=== PATIENT | female | born 1955 ===

== ENCOUNTER 2023-04-09 05:05 | Observation (INO) ==
--- NOTE | 2023-03-28 15:33 | Anesthesiology Consultation ---
Date of Service March 28, 2023 Assessment & Plan (1) Encounter for pre-operative examination: - check BSG am DOS. - awaiting medical clearance with Dr. Tate Moise, regular appointment 03/29/23. Optimization form and PAT testing to be faxed to PCP office. - Case discussed in detail with Dr. Cullen who advised patient have medical clearance given low functional capacity. Surgeon's office notified. Ramandeep made aware, states she will call family member taking patient to appointment today that it will need to also be a pre-op evaluation. - Cook Islander translation needed. Patient's son Milan will be present DOS for translation. He offered remaining overnight if staff need/prefer he do so for translation. Awaiting response from RN housing supervisors. - Medication instruction list discussed with patient translated by her son. They verbalized understanding and agreement, denied questions or concerns. - Trulicity instructions: Patient takes on (Saturday). Patient informed at PAT visit to stop 7 days prior to surgery and to contact prescribing provider regarding this and plan for resumption-voiced understanding. Instructed last dose will be: (03/29/23). Patient advised to check with prescriber to see if alternative diabetic management changes recommended while holding Trulicity-if so, patient to call back to PAT to update chart and discuss if any further preop medication instructions needed. - Outpatient joint assessment: Patient is currently scheduled for inpatient pathway. Patient and son express preference patient remain overnight. Chart Review Chart Review: Pending: Refer to Additional Notes / Consult section and Patient seen in Pre Admission Testing Teaching & Discussion Pre-Anesthesia Teaching/Discussion Notes: Instructed NPO after midnight before surgery, except medications with 15 cc of water. Medication instructions provided according to the PAT guidelines. History Surgery Operation Date: 04/09/23 10:40 Proposed Procedures p Right Total Hip Arthroplasty - Jose M Holliday MD Patient's son Milan translates for patient throughout entire visit. No weight at PAT visit as patient is unable to stand, weight in chart was reported by patient and son. Height/Weight Height: 5 ft 5 in Weight: 91.172 kg Allergies Allergy/AdvReac Type Severity Reaction Status Date / Time No Known Allergies Allergy Verified 03/14/23 15:34 Medications Home Medications Medication Instructions Recorded Confirmed Last Taken apremilast 30 mg tablet (Otezla) 30 mg PO BID 03/15/23 03/28/23 Unknown atorvastatin 10 mg tablet 10 mg PO QAM 03/15/23 03/28/23 Unknown celecoxib 200 mg capsule 200 mg PO DAILY PRN Pain 03/15/23 03/28/23 Unknown dulaglutide 1.5 mg/0.5 mL 0 - 1.5 mg subcut WK 03/15/23 03/28/23 Unknown subcutaneous pen injector (Trulicity) amlodipine 10 mg-benazepril 20 mg 1 cap PO QAM 03/28/23 03/28/23 Unknown capsule ergocalciferol (vitamin D2) 1,250 1,250 mcg PO WK 03/28/23 03/28/23 Unknown mcg (50,000 unit) capsule (Vitamin D2) Past Medical History Medical History (Updated 03/28/23 @ 16:06 by Elsa Roman PA-C) Reid's palsy 2018 Hyperlipidemia Hypertension controlled, stable per pt Diabetes NIDDM Patient denies h/o stroke, seizures, heart attack, heart failure, blood clots/DVTs or blood transfusions. Exercise / Class Metabolic Activity III < 4 Walking/Shop/Light housework (ambulates with walker at home, usually sedentary; denies chest discomfort or shortness of breath doing usual activities with walker) Past Surgical History Surgical History (Updated 03/28/23 @ 16:08 by Elsa Roman PA-C) History of ankle surgery right Past Anesthesia History No Hx of Anesthesia Complications and No Family Hx of Anesthesia Complications History of PONV No Hx of PONV and No Hx of Motion Sickness Social History Smoking Status: Never smoker Do You Dip or Chew Tobacco: No Hx Alcohol Use: No Hx Substance Use: No Review of Systems Snoring, denies witnessed apneas. Patient denies chest pain, shortness of breath, dyspnea on exertion, reflux, fever, chills, cough, wheezing, or palpitations. Physical Exam Vital Signs Vitals BP 131/74 P 79 TEMP 98.9 SP02 96% on RA RESP 17 Physical Patient resting comfortably in chair in no acute distress, alert and oriented, responding appropriately throughout visit Full cervical extension range of motion without pain TMD 3.5 finger breadths Mallampati Score 2 Dentition: edentulous, full upper and lower dentures Lungs: normal respiratory effort. Good air movement, clear throughout to auscultation, no adventitious breath sounds Cardiac: regular rate and rhythm, no murmurs noted Carotid arteries: negative bruit bilat Lab Results Anesthesia Preop Results Results Anesthesia Widget: WBC 10.36 K/ul (4.8-10.8) 03/14/23 Hgb 12.1 g/dl (12.0-16.0) 03/14/23 Hct 37.8 % (37.0-47.0) 03/14/23 Plt 336 K/uL (130-400) 03/14/23 Na 141 mmol/L (136-145) 03/28/23 K 4.0 mmol/L (3.5-5.1) 03/28/23 Cl 104 mmol/L (98-107) 03/28/23 CO2 31 mmol/L (21-32) 03/28/23 BUN 16 mg/dl (6-23) 03/28/23 Creat 0.64 mg/dl (0.6-1.2) 03/28/23 Glucose Level 128 mg/dl (70-99(Fasting)) H 03/28/23 PT 10.2 Seconds (9.0-12.0) 03/28/23 PTT 26.8 Seconds (21.0-31.0) 03/28/23 INR 0.9 (0.9-1.1) 03/28/23 HA1c 6.6 % (4.5-5.6) H 03/28/23 Blood Type A Positive 03/28/23 Antibody Screen NEGATIVE 03/28/23 Testing Electrocardiogram Date: 03/28/23 NSR, rate 77 bpm Incomplete RBBB Chest X-Ray Date: 03/28/23 No acute process.
--- NOTE | 2023-03-28 16:08 | PAT Medication Instructions ---
Medication Instructions Date of Service March 28, 2023 Home Medications apremilast 30 mg tablet (Otezla) 30 mg PO BID atorvastatin 10 mg tablet 10 mg PO QAM celecoxib 200 mg capsule 200 mg PO DAILY PRN Pain dulaglutide 1.5 mg/0.5 mL subcutaneous pen injector (Trulicity) mg subcut WK amlodipine-benazepril 10 - 20 mg PO QAM ergocalciferol (vitamin D2) 1,250 mcg (50,000 unit) capsule (Vitamin D2) 1,250 mcg PO WK ASK your surgeon for instructions celecoxib 200 mg capsule 200 mg PO DAILY PRN Pain ASK your prescriber and surgeon apremilast 30 mg tablet (Otezla) 30 mg PO BID DO NOT take the morning of surgery amlodipine-benazepril 10 - 20 mg PO QAM ergocalciferol (vitamin D2) 1,250 mcg (50,000 unit) capsule (Vitamin D2) 1,250 mcg PO WK Take morning of surgery With a small sip of water, OTHERWISE NOTHING TO EAT OR DRINK AFTER MIDNIGHT: atorvastatin 10 mg tablet 10 mg PO QAM STOP 7 days before surgery (last dose 03/29/23) dulaglutide 1.5 mg/0.5 mL subcutaneous pen injector (Trulicity) mg subcut WK Other Notes If you have any questions please call us at [phone] or [phone] or [phone] or [phone]
[2023-04-09] MEDS ORDERED: METOCLOPRAMIDE HCL 10 MG TABLET PO SCH (06:00)
[2023-04-09] MEDS ORDERED: LR 60ML/HR IV SCH (06:00)
[2023-04-09] MEDS ORDERED: LR 500ML BOLUS, THEN 15ML/HR IV SCH (06:00)
[2023-04-09] MEDS ORDERED: CeleBREX 200 MG CAP PO SCH (06:00)
[2023-04-09] MEDS ORDERED: ceFAZolin 2000MG 2,000 MG/15 ML SYR IV SCH (06:00)
[2023-04-09] MEDS ORDERED: ACETAMINOPHEN 500 MG TAB PO SCH (06:00)
[2023-04-09] MEDS ORDERED: Scopolamine 1 MG TDSY TD SCH (06:00)
[2023-04-09] MEDS ORDERED: FAMOTIDINE 20 MG TAB PO SCH (06:00)
[2023-04-09] MEDS ORDERED: TRANEXAMIC ACID 1,000 MG **IV Pre-op IV SCH (06:00)
[2023-04-09] MEDS ORDERED: MIDAZOLAM HCL 1 MG/ML 2ML VIAL ONE (06:27)
[2023-04-09] MEDS ORDERED: BUPIVACAINE 0.5 % 5 MG/1 ML PF 10ML VIAL ONE (06:27)
[2023-04-09] MEDS ORDERED: ONDANSETRON INJ 2 MG/ML 2 ML VIAL ONE (06:28)
[2023-04-09] MEDS ORDERED: LIDOCAINE 2% 2 ML VIAL/AMP(20MG/ML) INFIL ONE (06:28)
[2023-04-09] MEDS ORDERED: KETOROLAC 30 MG/ML VIAL ONE (06:28)
[2023-04-09] MEDS ORDERED: PROPOFOL IV EMULSION 10 MG/ML 100 ML VIAL IV ONE (06:28)
[2023-04-09] MEDS ORDERED: ROCURONIUM BROMIDE 10 MG/ML 5 ML VIAL IV ONE (06:32)
[2023-04-09] MEDS ORDERED: PROPOFOL IV EMULSION 10 MG/ML 20 ML VIAL IV ONE (06:32)
[2023-04-09] MEDS ORDERED: fentaNYL citrate PF 100 MCG/2 ML VIAL IV PRN (06:33)
[2023-04-09] MEDS ORDERED: ATROPINE SULFATE 0.1 MG/ML 10ML SYR IV PRN (06:33)
[2023-04-09] MEDS ORDERED: ePHEDrine sulfate 50 MG/ML AMP IV PRN (06:33)
[2023-04-09] MEDS ORDERED: ONDANSETRON INJ 2 MG/ML 2 ML VIAL IV PRN ×2 (06:33→11:04)
[2023-04-09] MEDS ORDERED: BUPIVACAINE/EPINEPHRINE 0.5% MPF 1:200,000 30 ML VIAL ONE (06:36)
--- NOTE | 2023-04-09 06:52 | History & Physical Bridge Note ---
Date of Service April 09, 2023 History & Physical Bridge Note I have examined the patient, reviewed the History & Physical and in the interval since the performance of the History & Physical I have noted the following changes of clinical significance: no changes noted
[2023-04-09] MEDS ORDERED: VANCOMYCIN HCL 1000MG/20ML VIAL ONE (06:55)
[2023-04-09] MEDS ORDERED: fentaNYL citrate PF 100 MCG/2 ML VIAL ONE (07:07)
[2023-04-09] MEDS ORDERED: SUGAMMADEX SODIUM 200 MG/2 ML VIAL IV ONE (07:35)
[2023-04-09] MEDS ORDERED: HYDROmorphone INJ 2 MG/ML SYR/VIAL ONE (07:37)
[2023-04-09] MEDS ORDERED: ePHEDrine sulfate 50 MG/5 ML SYR ONE (07:56)
--- NOTE | 2023-04-09 09:04 | Operative Report ---
PG Post Operative Report Pre & Post Diagnosis Operation Date: 04/09/23 07:00 Pre-Op Diagnosis: Right Hip Advanced Degenerative Joint Disease Post-Op Diagnosis: Right Hip Advanced Degenerative Joint Disease I identified the patient and participated in the time-out.: Yes Procedure Operation Date: 04/09/23 07:00 Actual Procedures p Right Total Hip Arthroplasty--Cemented(Right) - Jose M Holliday MD Surgeon Jose M Holliday MD Honing Machine Operator Semiautomatic Yannick Valencia PA-C Estimated Blood Loss 200 Findings Consistent with Post-Op Diagnosis Operative findings were advanced right hip DJD. She had extensive grade 4 [id number] disease of the femoral head and acetabulum. Some destruction of the femoral head. Moderate-sized joint effusion. Specimens Right femoral head sent for pathology. Anesthesia Type General Complications none Disposition Accompanied Patient To Recovery: No Indications Patient is 68-year-old female from the [facility] who has about a year history of increasing right hip pain discomfort is gotten markedly worse to the point where she had to use a walker to get around. X-rays show advanced hip arthritis with destruction of the femoral head. She failed all conservative measures. She had an extensive workup including infectious workup which was all negative. She elected proceed with total hip arthroplasty. Description of Procedure Operative implants consist of: 1. Biomet G7 size 52 mm acetabular shell. 2. Ages [place] chief data officer. 3. 6.5 cancellous acetabular screws 1 of 35 mm length and 125 mm length. 4. Highly cross-linked polyethylene liner with a 52 mm outer diameter, 36 mm inner diam with a newman placed inferior and posterior. 5. DePuy [place] size 3 high offset cemented femoral stem. 6. +5/36 mm ceramic articular ball. 7. Small cement restrictor. 8. 10 mm centralizer. The patient was taken the operating, identified, and placed on the operating table in the supine position but all contractors were appropriately padded. IV antibiotics tried by anesthesia team. A general anesthetic was implemented as the patient refused the spinal left. A Martinez catheter was placed in sterile fashion. The patient then placed in the left lateral decubitus position. An axillary roll was placed. Stulberg hip positioner was used for positioning. The right hip and leg were then prepped and draped in usual sterile fashion. A posterolateral approach to the right hip was then performed to a curvilinear incision centered over the greater trochanter. Sharp dissection was carried through subcutaneous tissue down to level the IT band gluteal fascia with the IT band gluteal fascia were incised longitudinally in line with skin incision. The underlying greater bursa was excised. The piriformis and external rotators along with the posterior hip joint capsule were taken off the posterior aspect of the hip as a single layer. Great care was taken throughout the procedure to protect the sciatic nerve at all times. The hip was internally rotated and dislocated. A femoral neck osteotomy cut was made with Final Cut about 7 mm above the lesser trochanter. Femoral head was removed and sent for pathology. The femur was retracted anteriorly. Attention drawn the acetabulum. The acetabular labrum was excised. The pulmonary fat was excised. Sequential reaming the acetabular was then performed beginning with size 43 and progressing up to a 51. I reamed a little bit with a 52 reamer. A 52 mm Biomet G7 acetabular shell was then placed in about 40 degrees lateral opening and 20 degrees of anteversion. It was fixed with two 6.5 cancellous acetabular screws. Trial liner was placed. Attention drawn the femur. The proximal femur was then with a StyleCaster cutter followed by canal finder and lateralizing reamer. I then began broaching with the 1 broach and progressed up to a 3. We got good fit with a 3. I trialed the hip. With the standard neck of the soft tissue tension just seemed a bit lax. We did elect to use a high offset implant to maximize her soft tissue stability. Leg lengths seemed equal. We will he elected to place these implants. All trial implants were removed. A cement restrictor was placed distally. The trial liner was removed. An apex eliminator was placed. Highly cross-linked polyethylene liner was placed with a newman placed inferior and posterior to maximize stability in flexion. The canal was then irrigated and brushed. Double batch [place] G cement was mixed and injected in the canal. A size 3 [place] high offset cemented femoral stem with a centralizer was placed. Once all cement hardened final check was performed. A +5/36 mm ceramic articular ball was placed. Hip was located. Soft tissue seemed appropriately attention. Leg lengths appeared equal. Hip was fully stable full extension and external rotation flexion to 90 degrees internal Tatian over 50 degrees. Attention drawn toward closing. The wound was irrigated coconuts pulsatile lavage solution. I did inject locally with 60 cc of half percent Marcaine with epinephrine. Posterior capsule and external rotators then repaired through drill holes in the posterior trochanter with #2 Tycron suture. The IT band gluteal fascia were then closed with #1 PDS suture running fashion with subcutaneous tissues then closed with 2 layers with deep layer #2 Vicryl suture in subcutaneous tissues with 2-0 Dexon suture in a buried interrupted fashion the skin was closed skin yoli. Leg was then cleaned and dried. A Prevena VAC dressing was applied due to the fairly thick soft tissue envelope. The patient was then brought out of general esthesia and transferred to the recovery room in stable condition. Patient tolerated procedure well and there were no complications. Yannick Valencia, my physician assistant finance manager, was present for the entire procedure. His assistance was essential and required for appropriate patient positioning, prepping and draping, surgical exposure, performing the technical details of the operation, placement the implants, closure of the wound, and placement of the sterile bandage. I attest to the content of the Intraoperative Record and any orders documented therein. Any exceptions are noted below.
[2023-04-09] MEDS ORDERED: ALUMINUM/MAGNESIUM SUSP 30 ML UDC PO PRN (11:04)
[2023-04-09] MEDS ORDERED: traMADol HCL 50 MG TABLET PO PRN (11:04)
[2023-04-09] MEDS ORDERED: SENNA 8.6 MG TAB PO SCH ×2 (11:04→21:00)
[2023-04-09] MEDS ORDERED: GLUCOSE 40% GEL 15 GM TUBE PO PRN (11:04)
[2023-04-09] MEDS ORDERED: MAGNESIUM HYDROXIDE SUSP 30 ML UDC PO PRN (11:04)
[2023-04-09] MEDS ORDERED: METOCLOPRAMIDE HCL INJ 5 MG/ML 2 ML VIAL IV PRN (11:04)
[2023-04-09] MEDS ORDERED: CARBOHYDRATES FOR HYPOGLYCEMIA PO PRN (11:04)
[2023-04-09] MEDS ORDERED: DEXTROSE 50% 50 ML SYRINGE IV PRN (11:04)
[2023-04-09] MEDS ORDERED: NALOXONE HCL 0.4 MG/1 ML VIAL/CARP IV PRN (11:04)
[2023-04-09] MEDS ORDERED: PHARMACY GLYCEMIC MGMT CONSULT PRN (11:04)
[2023-04-09] MEDS ORDERED: NON-FORMULARY MEDICATION (Dulaglutide [Trulicity] 1.5 mg/0.5 mL pen injector) SQ SCH (11:04)
[2023-04-09] MEDS ORDERED: GLUCAGON FOR INJ 1 MG VIAL SQ PRN (11:04)
[2023-04-09] MEDS ORDERED: HYDROmorphone INJ 0.5 MG/0.5 ML SYR IV PRN (11:04)
[2023-04-09] MEDS ORDERED: bisacodyL 10 MG SUPP PR PRN (11:04)
[2023-04-09] MEDS ORDERED: GLUCOSE 10 TAB/TUBE PO PRN (11:04)
--- NOTE | 2023-04-09 11:37 | Pharmacy Report ---
Pharmacy Glycemic Short Note 2 - Date of Service April 09, 2023 - Glycemic Short BSG Results (Last 24 hours): 04/09/23 04/09/23 06:18 09:11 POC Glucose 101 H 199 H OUTPATIENT ANTIDIABETIC REGIMEN: * dulaglutide 1.5mg SQ weekly HbA1C: 6.6% (03/28) ASSESSMENT: * Pt is a 68 year old female POD #0 right total hip arthroplasty. Pharmacy consulted to assist with inpatient glycemic management. * BSGs 101 (pre-op), 199mg/dL (post-op) * Diet ordered - PO dexamethasone X 1 dose tomorrow * Initiate bolus insulin only for today, ~ moderate stress scale ACHS. Will add overnight checks tonight. PLAN FOR INPATIENT GLYCEMIC CONTROL: * Hold outpatient oral diabetes medications * Basal insulin * hold * Bolus insulin * NovoLog per scale ACHS or Q6hrs while NPO * Goal Range: Low 110 mg/dL - High 140 mg/dL * Correction Factor: 30 mg/dL/unit * Nutritional / Prandial insulin per carb ratio of 1 unit per 10 grams CHO consumed
--- NOTE | 2023-04-09 12:10 | Anesthesiology Progress Note ---
Date of Service April 09, 2023 Anesthesia Post Procedure Vital Signs Vital Signs: Temp Pulse Pulse Resp BP Pulse Ox O2 Del Method 04/09/23 12:02 98.4 F 83 17 150/76 H 95 Room Air 04/09/23 11:30 84 10 L 148/80 H 95 Nasal Cannula 04/09/23 11:15 85 12 166/80 H 95 Nasal Cannula 04/09/23 11:00 84 12 165/79 H 94 Nasal Cannula 04/09/23 10:45 84 12 164/88 H 94 Nasal Cannula 04/09/23 10:30 79 12 165/80 H 93 Nasal Cannula 04/09/23 10:25 98.1 F 83 11 L 169/81 H 94 Nasal Cannula 04/09/23 10:15 84 12 153/83 H 95 Nasal Cannula 04/09/23 10:05 84 13 152/86 H 95 Oxymask 04/09/23 09:55 82 11 L 147/84 H 95 Oxymask 04/09/23 09:45 83 13 167/81 H 95 Oxymask 04/09/23 09:35 83 11 L 155/80 H 94 Oxymask 04/09/23 09:25 82 10 L 166/75 H 97 Oxymask 04/09/23 09:15 81 10 L 131/65 96 Oxymask 04/09/23 09:09 97.0 F L 88 14 146/66 H 94 Oxymask 04/09/23 05:50 98.1 F 86 16 175/95 H 95 Room Air O2 Flow Rate 04/09/23 12:02 04/09/23 11:30 3 04/09/23 11:15 3 04/09/23 11:00 3 04/09/23 10:45 3 04/09/23 10:30 3 04/09/23 10:25 3 04/09/23 10:15 3 04/09/23 10:05 4 04/09/23 09:55 4 04/09/23 09:45 4 04/09/23 09:35 6 04/09/23 09:25 8 04/09/23 09:15 8 04/09/23 09:09 8 04/09/23 05:50 Pain Intensity Right Hip: Pain Intensity: 7 Transfer of Care Handoff Completed per policy Notes Mental Status: alert / awake / arousable and participated in evaluation Patient Amnestic to Procedure: Yes Nausea / Vomiting: adequately controlled Pain: adequately controlled Airway Patency, RR, SpO2: stable & adequate BP & HR: stable & adequate Hydration State: stable & adequate Anesthetic Complications: no major complications apparent and Pt Satisfied with anesthetic care
[2023-04-09] MEDS: KETOROLAC TROMETHAMINE 15 MG/ML VIAL IV SCH ×3 (12:27→23:37)
[2023-04-09] MEDS: SODIUM CHLORIDE 0.9% 1,000 ML IV SCH ×2 (12:27→23:17)
--- NOTE | 2023-04-09 12:49 | XRay Report ---
SINGLE VIEW PELVIS; SINGLE VIEW RIGHT HIP CLINICAL HISTORY: Postoperative examination. FINDINGS: An AP portable view of the hips and pelvis with a crosstable lateral portable view of the r ight hip are compared to study dated 03/28/2023. A bipolar right hip arthroplasty is in near-anatomic alignment. At least 2 cortical lag screws transfix the acetabular cup. No acute fracture is identifi ed. There are expected postoperative changes overlying the right hip including skin clips, subcutaneo us gas, and soft tissue swelling. Mild degenerative changes noted in the left hip. There is degenerat martha sclerosis of the sacroiliac joints. Lumbosacral spondylosis is partially imaged. IMPRESSION: Expected postoperative findings status post right hip arthroplasty. No acute fracture is seen. ACT 112: Negative or not required by law. Electronically signed by: Norman Gómez M.D. 04/09/2023 12:48 PM
[2023-04-09] MEDS: ASPIRIN 81 MG ECTAB PO SCH ×2 (13:21→19:43)
[2023-04-09] MEDS: ATORVASTATIN 10 MG TAB PO SCH (13:22)
[2023-04-09] MEDS: DOCUSATE SODIUM 100 MG CAP PO SCH ×2 (13:22→19:44)
[2023-04-09] MEDS: amLODIPine BESYLATE 5 MG TAB PO SCH (13:22)
[2023-04-09] MEDS: ACETAMINOPHEN 500 MG TAB PO SCH ×2 (13:22→20:33)
[2023-04-09] MEDS: MULTIVITAMIN TAB PO SCH (13:22)
[2023-04-09] MEDS: ENALAPRIL MALEATE 10 MG TAB PO SCH (13:23)
[2023-04-09] MEDS: INSULIN ASPART PER UNIT CHARGE SC SCH ×4 (13:27→23:38)
[2023-04-09] MEDS ORDERED: TRANEXAMIC ACID / 0.7% NACL 1,000 MG/100 ML BAG IV SCH (15:00)
[2023-04-09] MEDS: ceFAZolin 2000MG 2,000 MG/15 ML SYR IV SCH ×2 (15:12→23:32)
[2023-04-09] MEDS: Scopolamine CHECK PATCH PLACEMENT SCH ×2 (15:12→23:36)
[2023-04-09] MEDS: ASCORBIC ACID 500 MG TAB PO SCH (17:33)
[2023-04-09 19:52] VITALS: RESP 16
[2023-04-10] MEDS: INSULIN ASPART PER UNIT CHARGE SC SCH ×3 (04:40→13:06)
[2023-04-10] MEDS: KETOROLAC TROMETHAMINE 15 MG/ML VIAL IV SCH ×2 (05:33→11:50)
[2023-04-10 06:25] LABS: Basophils # (auto) 0.02 K/uL (0.00-0.20); Basophils % (auto) 0.2 %; Eosinophils # (auto) 0.04 K/uL (0.00-0.50); Eosinophils % (auto) 0.4 %; Hematocrit (blood only) 30.3 % (37.0-47.0); Hemoglobin 9.5 g/dl (12.0-16.0); Immature Granulocytes # (auto) 0.03 K/uL (0.01-0.20); Immature Granulocytes % (auto) 0.3 %; Lymphocytes # (auto) 2.26 K/uL (1.20-3.40); Lymphocytes % (auto) 23.3 %; Mean Corpuscular Hemoglobin 27.5 pg (25.0-34.0); Mean Corpuscular Hgb Conc 31.4 g/dL (32.0-36.0); Mean Corpuscular Volume 87.8 fL (80.0-100.0); Mean Platelet Volume 9.9 fL (9.4-12.4); Monocytes # (auto) 0.69 K/uL (0.11-0.59); Monocytes % (auto) 7.1 %; Neutrophils # (auto) 6.67 K/uL (1.40-6.50); Neutrophils % (auto) 68.7 %; Platelet Count 253 K/uL (130-400); RDW Coefficient of Variation 12.7 % (11.5-14.5); Red Blood Count 3.45 M/uL (4.20-5.40); White Blood Count 9.71 K/ul (4.8-10.8)
[2023-04-10 06:41] LABS: BUN Creatinine Ratio 27.1 (10-20); Calcium 8.5 mg/dl (8.6-10.3); Creatinine Clr Calc Pharmacy 86.7 ml/min; Est GFR (African American) 102.5 ml/min; Est GFR (Non-African American) 88.4 ml/min; Potassium 4.4 mmol/L (3.5-5.1)
[2023-04-10 07:55] VITALS: TEMP 97.9
[2023-04-10] MEDS: ENALAPRIL MALEATE 10 MG TAB PO SCH (07:59)
[2023-04-10] MEDS: Scopolamine CHECK PATCH PLACEMENT SCH (07:59)
[2023-04-10] MEDS: MULTIVITAMIN TAB PO SCH (07:59)
[2023-04-10] MEDS: ASCORBIC ACID 500 MG TAB PO SCH (08:00)
[2023-04-10] MEDS: ASPIRIN 81 MG ECTAB PO SCH (08:00)
[2023-04-10] MEDS: ATORVASTATIN 10 MG TAB PO SCH (08:00)
[2023-04-10] MEDS ORDERED: dexAMETHasone 4 MG TAB PO SCH (08:00)
[2023-04-10] MEDS: amLODIPine BESYLATE 5 MG TAB PO SCH (08:00)
[2023-04-10] MEDS: DOCUSATE SODIUM 100 MG CAP PO SCH (08:01)
[2023-04-10] MEDS: ACETAMINOPHEN 500 MG TAB PO SCH (08:01)
[2023-04-10 11:29] VITALS: BP 138/72; PULSE 66; O2SAT 93
--- NOTE | 2023-04-10 12:41 | Orthopedic Progress Note ---
Date of Service April 10, 2023 Assessment & Plan (1) Status post right hip replacement: Overall she doing quite well this morning with good pain control. She has worked well with physical therapy and Occupational Therapy working on range of motion and ambulation exercises. She is on aspirin for DVT prophylaxis. She can be discharged later today. She will follow-up with orthopedics in 2 weeks for postoperative care. Subjective . Kandis was evaluated this morning laying in bed comfortably in no apparent distress. She does not speak much Hebrew so her daughter is translating for her during my visit with her this morning. She has worked well with physical therapy and Occupational Therapy working on range of motion and ambulation exercises. She notes that her pain is well-controlled. She denies any other concerns at this time. Review of Systems All systems reviewed & are unremarkable except as noted in HPI & below. Physical Exam . On physical examination of her right hip, her dressing is in place, dry, and intact. Her leg is out in full extension. Active plantarflexion dorsiflexion to the right ankle. +2 DP and PT pulses. Less than 2-second capillary refill. Normal sensation. Neurovascular intact. Results & Data Results & Data Laboratory Results . Diagnostic Findings . Postoperative x-rays of the right hip show prosthesis to be in anatomical alignment with no signs of fracture complication or loosening. PG Care Time/CCT Total # of Minutes Spent Total Time Spent with Patient: Total time spent is greater than 50% in coordination of care (as documented) at patient's floor/unit and/or counseling patient: Coding Level of Care Code 42027 Post Operative Follow-Up Diagnoses Status post right hip replacement Z96.641
--- NOTE | 2023-04-10 12:44 | Discharge Summary ---
Date of Service April 10, 2023 Principal Diagnosis Same as "Discharge Diagnosis" noted below under Discharge Instructions. Discharge Exam . On physical examination of her right hip, her dressing is in place, dry, and intact. Her leg is out in full extension. Active plantarflexion dorsiflexion to the right ankle. +2 DP and PT pulses. Less than 2-second capillary refill. Normal sensation. Neurovascular intact. Discharge Data Procedures Performed Operation Date: 04/09/23 07:00 Actual Procedures p Right Total Hip Arthroplasty--Cemented(Right) - Jose M Holliday MD Hospital Course (1) Status post right hip replacement: On April 09, 2023 Kandis arrived at [facility] and underwent a right total hip replacement without complications. She had a general anesthetic. Postoperatively, she was started on aspirin for DVT prophylaxis and transferred to the general orthopedic floor in stable condition. Her hospital course was uneventful. On postoperative day #1, her vital signs were stable and her pain was well-controlled. She was able to participate well with physical therapy doing ambulation and range of motion exercises. She was then discharged home. She will follow-up with orthopedics in 2 weeks for postoperative care. PG Care Time/CCT Total # of Minutes Spent Total Time Spent with Patient: Total time spent is greater than 50% in coordination of care (as documented) at patient's floor/unit and/or counseling patient: Discharge Plan Discharge Items Patient Disposition: Home - Home Health Services Reason For Visit: POST SURGICAL CARE Discharge Diagnosis: Right Hip Replacement Activity: Per Instructions section Activity Comment: Follow/Obey hip precautions at all times. Weightbearing: Full weightbearing Weightbearing Comment: Weightbear as tolerated obeying hip precautions at all times. Non-emergency contact: Surgeon Call non-emergency contact if: you have any medication questions Follow-up/Referrals: PCP,NO [Primary Care Provider] - Diet: Carb Consistent or DM2 Addtl Attending Provider Instructions: ACTIVITY RECOMMENDATIONS: Physical Therapy: * Aggressive physical therapy is not usually needed. You will learn to take care of yourself safely and walk. * Follow the "Hip Precautions Instructions." * In some cases, the bilingual social worker at the hospital will arrange to have a therapist come to your house for the first couple of weeks to help you learn these skills. * You need to practice on your own or with the help of a family member as needed. * When you learn these skills, most of the therapy can be done on your own. Home Exercise: * You were shown a series of exercises in the hospital. Do these exercises three to four times each day including the exercises you were shown in physical therapy. Walking: * Get up and walk several times each day. For the first four weeks, try not to stand or walk for more than one hour at a time. If you do stand or walk for more than one hour, you will not hurt anything, but your leg will likely swell. * As you feel comfortable, you may change from the walker or crutches to a cane and then to independent walking. MEDICATIONS: New Medicine: * You will likely be taking one or more of these medicines: 1. Tramadol - Take, as directed, when you need it, every six hours to control your pain. 2. Aspirin - Thins your blood to lessen the chance of forming a blood clot. * The most common side effects of pain medicine and iron are nausea and constipation. If nausea or constipation is too much of a problem or if you have any questions about your new medicines or doses, call [facility] at [phone]. We will try to help you manage these issues. "VERY IMPORTANT TO READ AND REVIEW" Pain: * The immediate post-operative period after hip replacement surgery is often quite painful. * You are given a prescription for pain medicine. You should take it, as directed, when you need it, especially before physical therapy and before going to bed. Pain that interferes with sleep is very common and can last several months. * You will likely need pain medicine for the first two to four weeks. It will not stop all of the pain. The pain will lessen and as you feel better, you may change to milder pain medicine such as Tylenol. * The most common side effects of pain medicine are nausea and constipation, so don't take more than you need. SPECIAL CARE INSTRUCTIONS: TEDs/Elastic Stockings: * The white elastic stockings help limit swelling and prevent blood clots from forming in your legs. The more you wear them, the more they work. * Wear them for six weeks. Incision Site Care: * Remove dressing postoperative day 2 and then shower. Keep direct shower pressure off the incision site. * After showering, cover khadra with dry gauze and change daily or more frequently if the dressing is getting saturated with drainage. * May completely stop using bandage if wound is dry and no drainage * Khadra are removed between 2 and 3 weeks post-op. If your follow-up appointment is made before 2 weeks, please have your appointment re- scheduled. It is too early to remove the khadra. Prevention of Infection: * Take antibiotics one hour before any dental cleaning, dental work, urological procedure, gastrointestinal procedure or any invasive surgery in order to prevent your new joint from getting infected. * You may get the antibiotics from the doctor performing the procedure or you may call our office at before and we will call in a prescription to the pharmacy of your choice. Things to Watch For: * Drainage from the incision site that occurs more than one week after your surgery. * Severely increased leg pain or swelling. * Increased redness at the incision site. * Fever above 102 degrees Fahrenheit. * Unusual chest pain or shortness of breath. * Unusual pain or burning with urination. Call [facility] at with any of the above problems or if you have any questions about your medicines or recovery. FOLLOW UP VISIT: Make an appointment to see your doctor for approximately two weeks after surgery for a progress check and staple removal by calling the office at . Pending Studies at Discharge: No Stand-Alone Forms: My [facility], Pain - Opioid Pain Management, Smoking Cessation Medications and DC Order Prescriptions: Continued tramadol 50 mg tablet 50 - 100 mg PO Q6 PRN (Reason: pain) Qty: 40 0RF Rx Instructions: Take as needed for pain ondansetron 4 mg tablet,disintegrating 4 mg PO Q8 PRN (Reason: nausea) Qty: 20 1RF Rx Instructions: Take as needed for nausea ketorolac 10 mg tablet 10 mg PO TID 5 Days Qty: 15 0RF Rx Instructions: Take 3 times per day with food for 5 days to lessen pain and swelling. sennosides [Senokot] 8.6 mg tablet 8.6 mg PO BID 14 Days Qty: 28 0RF Rx Instructions: Take two times a day to prevent/treat constipation acetaminophen [Tylenol Extra Strength] 500 mg tablet 1,000 mg PO TID 30 Days Qty: 180 0RF Rx Instructions: Take 3 times per day to lessen pain. aspirin [Andrez Low Dose Aspirin] 81 mg tablet,delayed release (DR/EC) 81 mg PO BID 45 Days Qty: 90 0RF Rx Instructions: Take to prevent blood clots. Otezla 30 mg tablet 30 mg PO BID atorvastatin 10 mg tablet 10 mg PO QAM Trulicity 1.5 mg/0.5 mL pen injector 0 - 1.5 mg subcut WK Rx Instructions: Patient takes Fridays. ergocalciferol (vitamin D2) [Vitamin D2] 1,250 mcg (50,000 unit) Capsule 1,250 mcg PO WK amlodipine-benazepril 10-20 mg Capsule 1 cap PO QAM Discontinued celecoxib 200 mg capsule 200 mg PO DAILY PRN (Reason: Pain) Krames/Other Patient Handouts: DVT Post Op Prevention, Knee Replace Home Recovery, Knee Replace Control Swelling Admission Data Admit Date/Time: 04/09/23 09:02 Attending Provider: Jose M Holliday Admit Provider: Jose M Holliday Primary Care Provider: PCP,NO Other Providers: [facility],Home [facility] Other Interventions: Discharge Summary Assessment (RN) Last Done: 04/10/23 12:10
[2023-04-12] MEDS ORDERED: ERGOCALCIFEROL 50,000 UNITS 1250 MCG CAP PO SCH (09:00)
== END 2023-04-10 13:30 | disposition home health service (06) ==
LOC: PACUINP 05:05 → ASU 05:05 → 3E 11:46
DX: E78.5 Hyperlipidemia, unspecified; Z79.899 Other long term (current) drug therapy; Z79.85 Long-term (current) use of injectable non-insulin antidiabetic drugs; M25.751 Osteophyte, right hip; M65.9 Synovitis and tenosynovitis, unspecified; Z79.82 Long term (current) use of aspirin; M16.11 Unilateral primary osteoarthritis, right hip; E11.9 Type 2 diabetes mellitus without complications; I10 Essential (primary) hypertension